=== PATIENT | male | born 1990 | race Caucasian/White ===

== ENCOUNTER 2022-01-16 07:46 | Emergency (ER) | payer BC ==
[2022-01-16 07:59] VITALS: BP 128/88; PULSE 103; TEMP 98.9; BMI 29.8
[2022-01-16] MEDS ORDERED: KETOROLAC TROMETHAMINE 60 MG/2 ML VIAL IM ONE (08:49)
[2022-01-16] MEDS ORDERED: LORATADINE 10 MG TABLET PO ONE (08:49)
[2022-01-16] MEDS ORDERED: LORATADINE 10 MG TABLET ONE (08:51)
[2022-01-16] MEDS ORDERED: KETOROLAC TROMETHAMINE 60 MG/2 ML VIAL ONE (08:51)
== END 2022-01-16 10:55 | disposition home or self-care (01) ==
LOC: JER 07:46 → JERFT 07:46
PROC: 3E0233Z Introduction of Anti-inflammatory into Muscle, Percutaneous Approach (ICD-10-PCS; principal; 2022-01-16)
DX: B34.1 Enterovirus infection, unspecified (principal)
CPT/HCPCS: 99284-25

== ENCOUNTER 2022-01-24 01:04 | Emergency (ER) | payer BC ==
[2022-01-24 01:31] VITALS: BP 114/78; PULSE 72; TEMP 98.1; BMI 24.2
== END 2022-01-24 01:32 | disposition home or self-care (01) ==
LOC: JER 01:04
DX: B34.1 Enterovirus infection, unspecified (principal)
CPT/HCPCS: 99281-25

== ENCOUNTER 2023-07-18 22:39 | Emergency (ER) | payer BC ==
[2023-07-18 22:51] VITALS: BP 145/88; PULSE 62; RESP 20; TEMP 98.4; BMI 29.5
[2023-07-18] MEDS ORDERED: SODIUM CHLORIDE 1,000 ML IV STA (23:08)
[2023-07-18] MEDS ORDERED: morphine CARPU-JECT 4 MG/1 ML DISP.SYRIN IVPUSH ONE (23:08)
[2023-07-18] MEDS ORDERED: ONDANSETRON 4 MG/2 ML VIAL IVPUSH ONE (23:09)
[2023-07-18] MEDS ORDERED: morphine SULFATE 4 MG/ML VIAL ONE (23:24)
[2023-07-18] MEDS ORDERED: ONDANSETRON 4 MG/2 ML VIAL ONE (23:24)
[2023-07-18 23:39] LABS: BASO % 0.1 % (0-2.0); EOS % 0.7 % (0-4.5); HEMATOCRIT 39.6 % (35.4-49); HEMOGLOBIN 13.9 GM/dL (11.7-16.9); LYMPH % 14.3 % (8-40); MCH 30.1 pg (25.7-33.7); MCHC 35.1 g/dl (32.0-35.9); MEAN CELL VOLUME 85.8 fl (80-96); MONO % 7.2 % (3.8-10.2); NEUT % 77.7 % (42.8-82.8); RBC 4.62 M/mm3 (4.00-5.60); RDW 13.6 % (11.9-15.9); WHITE BLOOD COUNT 9.8 K/mm3 (4.0-10.0)
[2023-07-18 23:41] LABS: EPI CELLS 4 /uL (0-25.1); HYALINE CASTS 1 /uL (0-3.1); PH,URINE 5.5 (5.0-8.0); URINE APPEARANCE CLEAR; URINE BACTERIA 7 /uL (0-1359); URINE BILIRUBIN NEGATIVE (NEGATIVE); URINE COLOR YELLOW; URINE GLUCOSE (UA) NEGATIVE (NEGATIVE); URINE KETONE NEGATIVE (NEGATIVE); URINE LEUK ESTERASE NEGATIVE (NEGATIVE); URINE NITRITE NEGATIVE (NEGATIVE); URINE PROTEIN 2+ (NEGATIVE); URINE RBC 259 /uL (0-23.9); URINE UROBILINOGEN 0.2 mg/dL (0.2-1.0); URINE WBC 17 /uL (0-25.8)
[2023-07-18 23:50] LABS: INR 1.11 (0.83-1.09); PROTHROMBIN TIME (PATIENT) 12.9 SEC (9.7-13.0)
[2023-07-19 00:14] LABS: MEAN PLT VOLUME 8.6 fl (7.5-11.1)
[2023-07-19 00:15] LABS: PLATELET COUNT 230 10^3/uL (134-434); POTASSIUM 3.8 mmol/L (3.5-5.1)
[2023-07-19 00:17] LABS: ALBUMIN 4.3 g/dl (3.4-5.0); CALCIUM 9.3 mg/dL (8.5-10.1)
[2023-07-19 00:21] LABS: CREATININE 1.4 mg/dL (0.55-1.3)
[2023-07-19 00:22] LABS: BILIRUBIN,TOTAL 0.8 mg/dL (0.2-1); TOT PROT 7.8 g/dl (6.4-8.2)
[2023-07-19] MEDS ORDERED: SODIUM CHLORIDE 1,000 ML IV STA (00:34)
== END 2023-07-19 03:01 | disposition home or self-care (01) ==
LOC: JER 22:39
PROC: 3E033GC Introduction of Other Therapeutic Substance into Peripheral Vein, Percutaneous Approach (ICD-10-PCS; principal; 2023-07-18)
PROC: 3E0337Z Introduction of Electrolytic and Water Balance Substance into Peripheral Vein, Percutaneous Approach (ICD-10-PCS; 2023-07-18)
PROC: 3E033GC Introduction of Other Therapeutic Substance into Peripheral Vein, Percutaneous Approach (ICD-10-PCS; 2023-07-19)
PROC: 3E0337Z Introduction of Electrolytic and Water Balance Substance into Peripheral Vein, Percutaneous Approach (ICD-10-PCS; 2023-07-19)
DX: G89.18 Other acute postprocedural pain (principal); R11.2 Nausea with vomiting, unspecified; R10.30 Lower abdominal pain, unspecified; N20.0 Calculus of kidney
CPT/HCPCS: 36415; 80053; 81003; 85025; 85610; 87086; 99284-25